=== PATIENT | female | born 1960 | race Caucasian/White ===

== ENCOUNTER 2022-11-23 01:53 | Day surgery (SDC) | payer OTHER, SELFPAY ==
[2022-11-13 10:07] VITALS: BMI 38.4
--- NOTE | 2022-11-13 10:12 | PC.NURSE ---
Report to the Outpatient Waiting Room, entrance under the green pavilion located off [facility], at time 6:30 on date 11/23/22. Planned Procedure Time: 8:30. Time changes happen often and if your time is changed the preop area will call you the afternoon before. - You and your visitor will be asked to self-screen and do not enter if you have any COVID symptoms. - A mask is optional within the hospital at this time. Patients may have clear liquids (water, carbonated beverages, clear teas, apple juice) until 3 hours prior to surgery with a maximum of 20 ounces. - No food from midnight until time of surgery Take the following medications with a SIP of water the morning of surgery: AMLODIPINE, METOPROLOL, CITALOPRAM DO NOT STOP ANY OF YOUR OTHER PRESCRIPTION MEDICATIONS PRIOR TO SURGERY EXCEPT THE FOLLOWING Medications to discontinue per physician: VITAMINS/SUPPLEMENTS Date to take last dose: 11/19/[address] MALDONADO REGARDING ASPIRIN Please no make-up, nail german, hairspray, perfume, deodorant, or body powder the day of surgery. No jewelry (including any body piercings) or valuables the day of surgery, leave them at home. Please take a shower or bath the night before, or the morning of, surgery with an antibacterial soap. Wear comfortable, loose fitting clothing. - Jewelry must be removed prior to entering the operating room. Rings and piercings that are not removed may be cut off. - The hospital will not accept responsibility for valuables. - Please leave all valuables, including medications, at home the day of surgery. If you are going home after surgery, a licensed milk pickup driver must drive you home. - NO public transportation without another adult if you receive anesthesia. - We recommend that an adult stay with you for 24 hours following discharge. - We also recommend that you do not drive, make important decision, drink alcoholic beverages, or take any drugs that were not prescribed by your health care provider for at least 24 hours after your discharge time. Follow any additional instructions given to you from your surgeon. If you or anyone in your household have experienced Covid symptoms in the past week, please notify your surgeon or the nurse liaison at the phone number below for possible testing. Telephone instructions given to PT - LAYSSA FOX and asked if any additional questions and then verbalized understanding. Patient advised to call surgeon office or pre surgery nurse liaison [phone] if any additional questions.
[2022-11-23] VITALS (9 sets, daily range): BP systolic 120–156; BP diastolic 71–87; PULSE 59–74; RESP 12–16; TEMP 36.2–36.3; O2SAT 94–99
[2022-11-23] MEDS: ACETAMINOPHEN 500 MG TABLET 1000 MG PO (06:49)
[2022-11-23] MEDS: LACTATED RINGERS 1,000 ML 30 ML IV CONT ×2 (07:35→09:10)
[2022-11-23] MEDS: OXYMETAZOLINE HCL 0.05% NAS 15 ML BTL (*BKC) 1 SPRAY NASAL (07:37)
--- NOTE | 2022-11-23 07:46 | WPDANESEPPF ---
Anes - Initial Pre Proc Eval Procedure: Operation Date: 11/23/22 08:30 Proposed Procedures p Septoplasty, - Quincy Garg MD s CT Guided Fusion Bilateral Ethmoidectomy, Bilateral Maxillary Antrostomy, Bilateral Turbinate Reduction - Quincy Garg MD Date/Time: 11/23/22 07:46 Surgeon: Quincy Garg MD Pre Op Diagnosis: chronic sinusitis Patient Data Age: 61 Gender: F Height: 1.57 m Weight: 94.4 kg Last Vital Signs Temp 36.3 C L 11/23/22 07:33 Pulse 70 11/23/22 07:33 Resp 16 11/23/22 07:33 BP 151/87 H 11/23/22 07:33 Pulse Ox 97 11/23/22 07:33 O2 Del Method Room Air 11/23/22 07:33 Allergies Allergy/AdvReac Type Severity Reaction Status Date / Time GUSTAVO Inhibitors Allergy Weakness Verified 11/23/22 06:46 Penicillins AdvReac Itching Verified 11/23/22 06:46 Home Medications Medication Instructions Recorded Confirmed Type amlodipine 10 mg tablet 10 mg PO DAILY 11/13/22 11/13/22 History aspirin 81 mg chewable tablet 81 mg PO DAILY 11/13/22 11/13/22 History calcium carbonate 600 mg calcium 600 mg PO DAILY 11/13/22 11/13/22 History (1,500 mg) tablet (Calcium) cholecalciferol (vitamin D3) 125 125 mcg PO DAILY 11/13/22 11/13/22 History mcg (5,000 unit) tablet (Vitamin D3) citalopram 40 mg tablet 40 mg PO DAILY 11/13/22 11/13/22 History dapagliflozin 10 mg tablet 10 mg PO DAILY 11/13/22 11/13/22 History (Farxiga) fenofibrate 160 mg tablet 160 mg PO HS 11/13/22 11/13/22 History furosemide 20 mg tablet 20 mg PO DAILY 11/13/22 11/13/22 History loratadine 10 mg tablet (Claritin) 10 mg PO DAILY 11/13/22 11/13/22 History metformin 1,000 mg tablet 1,000 mg PO BID 11/13/22 11/13/22 History metoprolol tartrate 100 mg tablet 100 mg PO DAILY 11/13/22 11/13/22 History olmesartan 40 mg tablet 40 mg PO DAILY 11/13/22 11/13/22 History omeprazole 20 mg capsule,delayed 20 mg PO DAILY 11/13/22 11/13/22 History release simvastatin 40 mg tablet 40 mg PO HS 11/13/22 11/13/22 History tirzepatide 7.5 mg/0.5 mL 7.5 mg subcut WEEKLY 11/13/22 11/13/22 History subcutaneous pen injector (Mounjaro) vitamin B complex 1 tablet PO DAILY 11/13/22 11/13/22 History Patient hx anesthesia problems: none Family hx anesthesia problems: none Results Review: All pre-operative results and documents have been reviewed as part of the pre-operative evaluation. [facility] Past Medical History Medical History (Updated 11/23/22 @ 07:46 by Evan Fairchild MD) Diabetes HTN (hypertension) Obesity DEMARIO (obstructive sleep apnea) Surgical History Surgical History (Updated 11/23/22 @ 07:46 by Evan Fairchild MD) History of section History of cholecystectomy Social History Social History Smoking packs per day: 1.5 Smoking cigarettes per day: 30.0 Years smoked: 18 Smoking pack-years: 27.00 Smoking status: Former smoker Tobacco type: cigarettes Smoking end date: 07/05/98 Alcohol intake: current Alcohol use details: RARE Substance use: never Substance use type: does not use Living arrangements: alone Spiritual care concerns: No Anes - Eval Final PreProcedure Day of Procedure 11/23/22 07:46 Patient weight: obese Heart: regular rate and rhythm Lungs: clear to auscultation Airway: Mallampati scale class II Neurological: alert and oriented Last oral intake: >/= 8 hours ASA classification: III Emergent: no Anesthetic plan: proceed Anesthesia type and monitoring: general ETT and standard monitoring Results Review: All pre-operative results and documents have been reviewed as part of the pre-operative evaluation. Informed Consent: The patient's anesthetic plan and its attendant risks and benefits were discussed with the patient/family/POA. Questions were solicited and answers provided to the satisfaction of the patient/family/POA.
--- NOTE | 2022-11-23 08:04 | PM.IMHP ---
H&P: HPI History of Present Illness Date/Time: 11/23/22 08:04 Chief Complaint: chronic sinusitis Narrative: chronic sinusitis Review of Systems Review of Systems: All systems reviewed & are unremarkable except as noted in HPI and below [facility] Past Medical History Medical History Diabetes HTN (hypertension) Obesity DEMARIO (obstructive sleep apnea) Surgical History Surgical History History of section History of cholecystectomy Social History Social History Smoking packs per day: 1.5 Smoking cigarettes per day: 30.0 Years smoked: 18 Smoking pack-years: 27.00 Smoking status: Former smoker Tobacco type: cigarettes Smoking end date: 07/05/98 Alcohol intake: current Alcohol use details: RARE Substance use: never Substance use type: does not use Living arrangements: alone Spiritual care concerns: No Meds Home Medications and Allergies Home Medications Medication Instructions Recorded Confirmed Type amlodipine 10 mg tablet 10 mg PO DAILY 11/13/22 11/13/22 History aspirin 81 mg chewable tablet 81 mg PO DAILY 11/13/22 11/13/22 History calcium carbonate 600 mg calcium 600 mg PO DAILY 11/13/22 11/13/22 History (1,500 mg) tablet (Calcium) cholecalciferol (vitamin D3) 125 125 mcg PO DAILY 11/13/22 11/13/22 History mcg (5,000 unit) tablet (Vitamin D3) citalopram 40 mg tablet 40 mg PO DAILY 11/13/22 11/13/22 History dapagliflozin 10 mg tablet 10 mg PO DAILY 11/13/22 11/13/22 History (Farxiga) fenofibrate 160 mg tablet 160 mg PO HS 11/13/22 11/13/22 History furosemide 20 mg tablet 20 mg PO DAILY 11/13/22 11/13/22 History loratadine 10 mg tablet (Claritin) 10 mg PO DAILY 11/13/22 11/13/22 History metformin 1,000 mg tablet 1,000 mg PO BID 11/13/22 11/13/22 History metoprolol tartrate 100 mg tablet 100 mg PO DAILY 11/13/22 11/13/22 History olmesartan 40 mg tablet 40 mg PO DAILY 11/13/22 11/13/22 History omeprazole 20 mg capsule,delayed 20 mg PO DAILY 11/13/22 11/13/22 History release simvastatin 40 mg tablet 40 mg PO HS 11/13/22 11/13/22 History tirzepatide 7.5 mg/0.5 mL 7.5 mg subcut WEEKLY 11/13/22 11/13/22 History subcutaneous pen injector (Hirenunvitaro) vitamin B complex 1 tablet PO DAILY 11/13/22 11/13/22 History Allergies Allergy/AdvReac Type Severity Reaction Status Date / Time GUSTAVO Inhibitors Allergy Weakness Verified 11/23/22 06:46 Penicillins AdvReac Itching Verified 11/23/22 06:46 Vital Signs Vital Signs - 24 hr 11/23/22 07:33 Temperature 36.3 C L Pulse Rate 70 Respiratory Rate 16 Blood Pressure 151/87 H Pulse Oximetry 97 Oxygen Delivery Room Air Exam Narrative: Chronic maxillary and ethmoid sinusitis, mild septal deviation, turbinate hypertrophy. Assessment and Plan Assessment and plan (1) Chronic maxillary sinusitis: Code(s): J32.0 - Chronic maxillary sinusitis Status: Acute Plan Keiry has chronic maxillary and ethmoid sinusitis, mild septal deviation, turbinate hypertrophy. Here for septoplasty, turbinoplasty, maxillary antrostomy, anterior ethmoidectomy under image guidance. r/b/a reviewed, pt understands and agrees to proceed. Refer to outpt H&P for full details.
--- NOTE | 2022-11-23 08:06 | WPDHPUPDATE1 ---
History and Physical Update Update Date/Time: 11/23/22 08:06 History and Physical has been reviewed, including an updated exam of the patient. There are NO changes in the patient's condition. Risks, benefits, and alternatives have been discussed and questions answered. Patient agrees to proceed with procedure.
[2022-11-23] MEDS: ceFAZolin 2 GM/D5W 50 ML 2 GM/50 ML BAG IVPB (08:13)
[2022-11-23] MEDS: LIDO 1%/EPINEPHRINE 1:100,000 50 ML VIAL INFILTRATE (08:34)
[2022-11-23 09:21] LABS: Glucose Point of Care 115 mg/dl (65-105)
--- NOTE | 2022-11-23 09:25 | P.OP_ITS ---
Procedure Note - Detailed Date of Procedure 11/23/22 Pre-op Diagnosis chronic sinusitis Post-op Diagnosis Same Procedure Performed Bilateral maxillary antrostomy, total ethmoidectomy, turbinoplasty, endoscopic septoplasty. Surgeon Quincy Garg MD Anesthesia General Findings Right septal deviation. 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 Nasopore bilaterally. Description of Procedure On the date of procedure the patient was met in the preoperative area and risk and benefits of the procedure reviewed with the patient as documented in the H&P and they elected to proceed with surgery. Patient was brought back to the oper ating room by the anesthesia team and underwent general endotracheal anesthesia. Once an adequate plane of anesthesia was obtained a timeout was performed to assure the patient identification the patient here to be performed were correct. They were.The patient was then prepped and draped in the normal fashion for endoscopic sinus surgery. The diffusion image guidance system was calibrated and used for the entire case. Afrin-soaked pledgets were placed in the nasal cavities bilaterally. The entire case was performed under endoscopic visualization. Nasal endoscopy was performed at the beginning of the case. 1% lidocaine with 1:100,000 epinephrine was then injected into the root of the middle turbinate and lateral nasal wall. Attention was first directed towards the right side. The middle turbinate was medialized and the osteomeatal complex was identified with a josseline probe. Using a 90 degree backbiter, the uncinate process was reflected anteriorly and removed using a combination of sharp and powered dissection. The maxillary antrostomy was then created and widened by identifying the natural ostia and opening the sinus with straight chao-cut forceps, backbiter, and microdebrider. Continuing with the microdebrider, the anterior ethmoid bulla was opened. Careful dissection was carried out posteriorly, through the basal lamella and posterior ethmoid cells until the sphenoid rostrum was identified. The right side was narrowed due to septal deviation.? Thus, septoplasty was required.? A right modified rebecca incision was made and mucoperichondrial flap was elevated. The window of deviated cartilage and bone was removed using double action scissors, didier-jaswant forceps and helen elevator along with quin forceps. The mucosal flap was then laid back down showing improvement in nasal airway. Next, the left maxillary antrostomy,total ethmoidectomy were carried out in identical fashion.? With all sinuses opened and addressed, nasopore packing was placed in the ethmoid acvities bilaterally. Hemostasis was ensured. Lastly, the bilateral inferior turbinates were reduced submucosally using 2mm microdebrider and then outfractured with a sayer elevator. This significantly opened the airway. At this point, the procedure was concluded. Care the patient was transferred back to the anesthesia team and the patient was awoke in the operating room and transferred back to the PACU in stable condition. Quincy Garg M.D. Estimated Blood Loss -10.0 Drains No Packing Yes (nasopore) Pathology None sent Complications No immediate complications Condition Stable Disposition PACU
[2022-11-23] MEDS: oxyCODONE HCL (*CRX) 5 MG TAB IR PO (10:52)
== END 2022-11-23 11:36 | disposition home or self-care (01) ==
PROVIDERS: Visit Provider Otolaryngology
PROC: (CPT 30520; principal; 2022-11-23 08:30)
PROC: (CPT 31256; 2022-11-23 08:30)
DX: J32.0 Chronic maxillary sinusitis (principal); J34.2 Deviated nasal septum; J34.1 Cyst and mucocele of nose and nasal sinus; E11.9 Type 2 diabetes mellitus without complications; I10 Essential (primary) hypertension; G47.33 Obstructive sleep apnea (adult) (pediatric); E66.9 Obesity, unspecified; Z68.38 Body mass index [BMI] 38.0-38.9, adult; Z79.82 Long term (current) use of aspirin; Z79.84 Long term (current) use of oral hypoglycemic drugs; Z79.899 Other long term (current) drug therapy; Z87.891 Personal history of nicotine dependence
CPT/HCPCS: 31256; 31255; 61782; 30520; 30140; 82948; A9270; J0690; J2250; J2405; J2704; J3010; J7120